=== PATIENT | female | born 1930 | race Caucasian/White ===

== ENCOUNTER 2016-11-11 04:10 | Inpatient (IN) | payer MEDICARE, BC ==
--- NOTE | ~2016-11-11 | HP ---
History And Physical [id number] [place]. [address] NAME: MANUEL SAMUELS : [birth year] STATUS : ADM Mahdu PAT#: [id number] AGE: 86 ADM/REG DATE : 11/11/16 MR#: [id number] REPORT SERV DATE: 11/11/16 DICTATED BY: FLORY LARRY DATE: 11/11/16 REPORT STATUS : Draft TRANSCRIBED BY: MODL DATE: 11/11/16 DATE OF ADMISSION: 11/11/2016 POINT OF ENTRY: [facility] Emergency Department. PRIMARY [employer] INSPECTOR: Parth Delgado M.D. CHIEF COMPLAINT: Shortness of breath and weakness. HISTORY OF PRESENT ILLNESS: Ms. Samuels is an 86-year-old female with a history of advanced chronic systolic congestive heart failure with ejection fraction of approximately 20%, status post AICD pacemaker insertion as well as atrial fibrillation, on anticoagulation, coronary artery disease, and ctvgwunj-tr-mdqaud mitral regurgitation, who presented to the Emergency Department at [facility] on Saturday evening with reports of shortness of breath, dyspnea on exertion, as well as weakness and fatigue. The patient is a very poor historian, and unfortunately it is very difficult to get a clear sense of what caused her to go into the [facility] Emergency Department on Saturday. It appears that she has recently been placed on Entresto, and she states that she ran out of the medication approximately three days ago, and the refill which she receives via the mail, had not arrived yet. She does state compliance with her Lasix 40 mg daily as well as fluid and sodium restriction. She states that when she woke up on Saturday morning, she did not "feel well," and throughout the day she got worse. When asked to provide details, she describes worsening weakness, shortness of breath, dyspnea on exertion, as well as what appears to be exercise intolerance. She denies any fevers, night sweats, chills, cough, sputum production, chest pain, palpitations, abdominal complaints such as abdominal pain, nausea, vomiting, diarrhea, or constipation. She states she has minimal edema in her legs, but it is very little compared to previous troubles with lower extremity edema. Initial evaluation at [facility] Emergency Department is noted for a chest x-ray that was concerning for volume overload. An INR was 3.99. A D-dimer was checked, it was elevated; therefore, a CT of the chest was done, which was negative for PE. She was given 80 mg of IV Lasix and then transferred to [facility] per patient request. COMPREHENSIVE REVIEW OF SYSTEMS: Otherwise negative, unless listed in history of present illness. PREVIOUS MEDICAL HISTORY: 1. Chronic systolic congestive heart failure, ejection fraction of 20%. 2. Coronary artery disease with prior myocardial infarction. 3. Status post AICD pacemaker insertion and generator and lead exchange. 4. Hypothyroidism. 5. Atrial fibrillation, on anticoagulation. 6. Yinonwcb-nf-zorloj mitral regurgitation. 7. History of breast cancer. 8. Hypertension. History And Physical [address] [address] NAME: MANUEL SAMUELS : [birth year] STATUS : ADM Madhu PAT#: [id number] AGE: 86 ADM/REG DATE : 11/11/16 MR#: [id number] REPORT SERV DATE: 11/11/16 DICTATED BY: FLORY LARRY DATE: 11/11/16 REPORT STATUS : Draft TRANSCRIBED BY: MORGAN DATE: 11/11/16 9. Obesity. 10.Chronic lower extremity wounds. SURGICAL HISTORY: 1. Cholecystectomy. 2. AICD pacemaker insertion. ALLERGIES: ARE TO SULFA DRUGS, TRAMADOL, AND CODEINE. HOME MEDICATIONS: Are pending at the time of dictation. SOCIAL HISTORY: Denies any tobacco, alcohol, or illicits. FAMILY MEDICAL HISTORY: Coronary artery disease. LABORATORIES AND IMAGING: All obtained from transfer records from [facility] Emergency Room. 1. Sodium is 137, potassium 3.9, chloride 99, carbon dioxide 23, BUN 23, creatinine 1.0, glucose is 158, calcium is 9.3, protein 6.3, albumin is 3.0, bilirubin is 2.7, ALT is 23, AST 46, alkaline phosphatase is 66. 2. INR is 3.99. 3. D-dimer is 2.84. 4. Troponin is 0.01. 5. Chest x-ray shows small bilateral pleural effusions as well as patchy bibasilar opacities, concerning for atelectasis versus edema versus consolidation. 6. CTA of the chest is negative for PE by a limited evaluation. 7. EKG obtained here per my review shows a Bi-V paced rhythm, which is unchanged compared to prior EKGs. PHYSICAL EXAMINATION: VITAL SIGNS: Temperature is 97.7 degrees Fahrenheit, pulse is 69, respirations 16, saturating 94% on 2 L via nasal cannula, blood pressure is 117/65. GENERAL: The patient is awake, alert, in no acute distress. Resting comfortably. She is a well-developed and well-nourished elderly female. HEENT: Atraumatic and normocephalic. Moist mucous membranes. Pupils are equal, round, reactive to light and accommodation. Extraocular eye movements are intact. No scleral icterus. NECK: Some mild jugular venous distention. No carotid bruits. CARDIAC: Regular rate and rhythm with a 2/6 systolic murmur, heard best over left lower sternal border. LUNGS: Is on oxygen, but is in no respiratory distress. Does have some mild inspiratory rales and crackles in the bilateral bases. ABDOMEN: Soft, nontender, and nondistended. Good bowel sounds. No rebound, guarding, or rigidity. EXTREMITIES: Are warm and perfused with no cyanosis or clubbing. Does have some chronic venous stasis changes as well as trace pedal edema. SKIN: Warm and dry. History And Physical [address] [address] NAME: MANUEL SAMUELS : [birth year] STATUS : ADM Madhu PAT#: [id number] AGE: 86 ADM/REG DATE : 11/11/16 MR#: [id number] REPORT SERV DATE: 11/11/16 DICTATED BY: FLORY LARRY DATE: 11/11/16 REPORT STATUS : Draft TRANSCRIBED BY: MODGrecia DATE: 11/11/16 PSYCHIATRIC: Affect is anxious. NEUROLOGIC: Alert and oriented x3. Cranial nerves II through XII grossly intact. Speech is normal. Gait is not assessed. ASSESSMENT AND PLAN: Ms. Samuels is an 86-year-old female with a history of advanced chronic systolic congestive heart failure, who presents with weakness, shortness of breath, and found to have an acute on chronic systolic congestive heart failure exacerbation. PROBLEM LIST: 1. Acute on chronic systolic congestive heart failure exacerbation. 2. Hypoxemia. 3. Supratherapeutic INR. 4. Elevated D-dimer level with negative CT of the chest. 5. Elevated bilirubin level. 6. Weakness and fatigue. PLAN: 1. Acute on chronic systolic congestive heart failure. She has received 80 of IV Lasix at the outside emergency department. We will continue initial IV. Did Lasix diuresis with 40 mg IV q.8 hours for two additional doses. The patient is a very poor historian, but I think she was placed on Entresto, and she reports that she has run out of it three days ago. We will need to have Pharmacy confirm her home medications, and we will restart them as indicated. Given her advanced heart failure, we will ask Dr. Delgado, her primary database operator, to assist us with managing the patient's condition. Place the patient on fluid and sodium restriction. Follow up repeat chest x-ray here upon admission as well as a BNP level. We will hold off on further echocardiogram as she just had an echocardiogram approximately one month ago. 2. Hypoxemia. She is on 2 L via nasal cannula. She is not normally on any oxygen at home. We will attempt to wean as tolerated with diuresis. 3. Supratherapeutic INR. We will hold the patient's Coumadin, and ask Pharmacy to assist us with managing. 4. Elevated D-dimer level. The patient's CTA of the chest was negative for PE, although limited evaluation; although, she is already on anticoagulation for her history of atrial fibrillation. 5. Elevated bilirubin level. Possibly due to congestive hepatopathy. We will need to continue to monitor. 6. Weakness and fatigue. I think likely secondary to advanced heart failure and exacerbation, but we will continue to monitor. She does have hypothyroidism; therefore, we will check some thyroid function studies as well, as well as a urinalysis. 7. Deep venous thrombosis prophylaxis. Therapeutic INR. CODE STATUS: The patient wishes to be DO NOT RESUSCITATE; this was confirmed with the patient. History And Physical [address] [place]. [address] NAME: MANUEL SAMUELS : [birth year] STATUS : ADM Madhu PAT#: [id number] AGE: 86 ADM/REG DATE : 11/11/16 MR#: [id number] REPORT SERV DATE: 11/11/16 DICTATED BY: FLORY LARRY DATE: 11/11/16 REPORT STATUS : Draft TRANSCRIBED BY: MORGAN DATE: 11/11/16 JAY/MORGAN Flory Larry MD / [id number] CC: Beni Faria Jr, MD Ronald Jarl, M.D. David Wendt, M.D.
--- NOTE | ~2016-11-11 | DS ---
Discharge Summary [facility] [address] [facility] [place]. [address] NAME: MANUEL SAMUELS : [birth year] STATUS : DIS IN PAT#: [id number] AGE: 86 ADM/REG DATE : 11/11/16 MR#: [id number] REPORT SERV DATE: 11/16/16 DICTATED BY: JR. FARIA WILLIAM JOHN DATE: 11/15/16 REPORT STATUS : Draft TRANSCRIBED BY: MODGrecia DATE: 11/15/16 ADMISSION DATE: 11/11/2016 DISCHARGE DATE: 11/15/2016 DISCHARGE DIAGNOSES: 1. Acute on chronic systolic heart failure with ejection fraction of 20% status post AICD. 2. Acute on chronic hypoxic respiratory failure, now resolved. 3. Iatrogenic coagulopathy. 4. Weakness. 5. Status post fall. 6. Acute kidney injury. OPERATIONS, PROCEDURES, AND TREATMENTS: Include: 1. PA and lateral chest x-ray done 11/11/2016, which showed small bilateral pleural effusions with cardiomegaly, which was mildly improved from the prior study. 2. PA and lateral chest x-ray done 11/12/2016, which showed costophrenic pleural fluid, bibasilar atelectasis, cardiomegaly, and pacemaker in place. DISCHARGE MEDICATIONS: Include: 1. Potassium chloride 10 mEq orally daily. 2. Entresto one tablet orally twice a day. I wrote a script for 2 week supply with a 90 day supply already in the mail from her insurance carrier. 3. Coumadin 3 mg orally daily. 4. Vitamin B12 of 1000 mcg orally daily. 5. Calcium plus D 600 one tablet orally daily. 6. Cholecalciferol 2000 units daily. 7. Lasix 40 mg every morning. 8. Synthroid 125 mcg daily. 9. Metoprolol 25 mg orally daily. CONSULTING PHYSICIAN: Dr. Delgado of Cardiology. HOSPITAL COURSE: The patient is an 86-year-old female with a history of advanced chronic systolic heart failure, on Entresto at home, who presented to the emergency room on 11/11/2015 with complaint of shortness of breath. The patient apparently ran out of Entresto, went to [facility] several days prior, was discharged, went home, continued to not feel well, had dyspnea on exertion. The emergency room workup was significant for a temperature of 97.7, heart rate 69, respiratory rate 16, saturating 94% on 2 L oxygen with a blood pressure 117/66. She had mild jugular venous distention with 2/6 holosystolic murmur heard left over the left lower sternal border. She had mild inspiratory rales and crackles in the bilateral bases with trace pedal edema. BUN and creatinine were 23 and 1. The patient was admitted to the Clinical Decision Unit. She was placed on diuresis with IV Lasix with a fairly brisk diuresis. She was slow to wean off oxygen. She was seen in consultation by Cardiology who agreed with diuresis. The patient slowly improved. Her Discharge Summary [facility] [address] [place]. [address] NAME: MANUEL SAMUELS : [birth year] STATUS : DIS IN PAT#: [id number] AGE: 86 ADM/REG DATE : 11/11/16 MR#: [id number] REPORT SERV DATE: 11/16/16 DICTATED BY: JR. FARIA WILLIAM JOHN DATE: 11/15/16 REPORT STATUS : Draft TRANSCRIBED BY: MORGAN DATE: 11/15/16 renal function actually improved with diuresis. At discharge, her BUN is 27 and creatinine 1. She is euvolemic clinically. The patient is somewhat frightened of going home, however, desperately wants to maintain her independence. We have arranged for home health. We have also spoken with her insurance carrier regarding the Entresto which is to be mailed. We have made arrangements for a two week supply of Entresto with a guarantee from the insurance company that her mailed prescription of Entresto will arrive prior to running out. Regarding the hypoxic respiratory failure, this had resolved by discharge, and the patient was on room air. Regarding iatrogenic coagulopathy, this resolved with withholding Coumadin. At discharge, her INR is 2.4, she will resume 3 mg of Coumadin per day. With regard to weakness and falls, patient worked with physical therapy. The patient will be discharged home today 11/16/2016. She will be seen by home health through [facility]. The patient will follow up with her primary care physician with a BMP and INR in one week, that would be Dr. Gomez Alvarez. She will also follow up with Cardiology, Dr. Delgado. The patient was also instructed to weigh herself daily and call Dr. Delgado's office if she gains over 3 pounds. DISCHARGE DIET: 2 g sodium, 1.2 L fluid restriction. ACTIVITY: As tolerated. FOLLOWUP: As above. This discharge took 40 minutes for patient encounter, coordination of care, and documentation. For discharge exam and laboratory, please see daily progress note. WJF/MODL Beni Faria Jr, MD / [id number] CC: Beni Faria Jr, MD Keith Weaver, MD
--- NOTE | ~2016-11-11 | CN ---
Consultation Report [facility] [address] [facility] [place]. [address] NAME: MANUEL SAMUELS : [birth year] STATUS : ADM IN PAT#: [id number] AGE: 86 ADM/REG DATE : 11/11/16 MR#: [id number] REPORT SERV DATE: 11/13/16 DICTATED BY: BENI ONEIL DATE: 11/13/16 REPORT STATUS : Draft TRANSCRIBED BY: MORGAN DATE: 11/13/16 CARDIOLOGY CONSULTATION. DATE OF CONSULTATION: [facility] PHYSICIAN: Parth Delgado M.D. REASON FOR CONSULTATION: Heart failure. HISTORY OF PRESENT ILLNESS: Ms. Samuels is an 86-year-old woman, well known to Dr. Delgado with a history of nonischemic cardiomyopathy status post defibrillator placement and recent generator change. Overall, she was doing well from a cardiac standpoint but ran out of her Entresto due to some communication issues with the insurance carrier. She had some increasing weakness which was her main complaint as well as dyspnea. Due to these ongoing progressive symptoms, she called the ambulance and was brought to the hospital with signs and symptoms of congestive heart failure. She denied chest pain or tightness. Had no palpitations or syncope, and no defibrillator firing. She reports compliant with her diuretics and somewhat with her fluid intake. REVIEW OF SYSTEMS: As per the history of present illness, ten other systems are negative. No fevers or chills. No nausea or vomiting. No PND but mild orthopnea. PAST MEDICAL HISTORY: 1. Chronic atrial fibrillation. 2. Nonischemic cardiomyopathy, status post biventricular ICD. 3. Chronic Coumadin therapy. 4. Chronic systolic congestive heart failure. FAMILY HISTORY: Noncontributory. SOCIAL HISTORY: The patient is . Lives alone. Continues to be active and drives by her report. ALLERGIES: SULFA, CODEINE, AND ADHESIVE. HOME MEDICATIONS: Lasix 40 mg p.o. daily, Synthroid 125 mcg daily, Toprol-XL 50 daily, potassium 10 daily, Entresto daily, spironolactone 25 daily, warfarin as directed. PHYSICAL EXAMINATION: VITAL SIGNS: Heart rates 69, blood pressure 105/60. GENERAL: The patient is a pleasant elderly white female in no apparent distress. HEENT: Conjunctivae are anicteric, no xanthelasma, lips without cyanosis. NECK: Supple. Jugular venous pressure is mildly elevated. Consultation Report [id number] [place]. [address] NAME: MANUEL SAMUELS : [birth year] STATUS : ADM IN PAT#: [id number] AGE: 86 ADM/REG DATE : 11/11/16 MR#: [id number] REPORT SERV DATE: 11/13/16 DICTATED BY: BENI ONEIL DATE: 11/13/16 REPORT STATUS : Draft TRANSCRIBED BY: MODL DATE: 11/13/16 LUNGS: Clear to auscultation bilaterally, no wheezes, rales or rhonchi. CARDIOVASCULAR: Irregularly irregular. Normal S1, S2. 2/6 holosystolic murmur. ABDOMEN: Soft, nontender, nondistended. EXTREMITIES: Mild lower extremity edema. NEURO/PSYCH: Alert and oriented to person, place and time. No obvious neurologic deficits. Mood and affect normal. DATA: BNP is down to 1773 from 5000. Creatinine 1.07. Troponin negative. IMPRESSION: 1. Acute on chronic systolic congestive heart failure. 2. Nonischemic cardiomyopathy, status post biventricular ICD. 3. Chronic atrial fibrillation. 4. Chronic anticoagulation. RECOMMENDATIONS: Ms. Samuels presents with congestive failure which could be due to running out of her Entresto. I will get her started back on that drug and continue gentle diuresis and watch her creatinine. I will also fluid restrict her. WO/MODL Beni Oneil M.D., Ph.D, F.A.C.C. / [id number] CC: Beni Faria Jr, MD Ronald Jarl, M.D.
[~2016-11-11 04:10] MED LIST: AVAPRO75 PO; B12100T PO; C5 PO; CALTRA600D PO; CEFT5 PO; CO Q-10100 MG PO; COZ50 PO; CYANO1000T PO; DCN100 PO; DIGITEK0.125 MG PO; JANTOVEN3 MG PO; KLOR-CON 1010 MEQ PO; L20 PO; L40 PO; SACU1TAB PO; SPIRO25 PO; SYN1 PO; SYN125 PO; TOPXL50 PO; VITAMIN D31000 UNIT PO
[2016-11-11 06:21] LABS: BASOPHILS 0 %; EOSINOPHILS 0 %; HEMATOCRIT 34.9 % (36.0-48.0); HEMOGLOBIN 11.9 g/dL (12.0-16.0); LYMPHOCYTES 20.9 %; LYMPHOCYTES ABSOLUTE 0.87 10/3/uL (0.67-4.30); MEAN CORPUS HGB CONC 34.1 g/dL (32.0-36.0); MEAN CORPUSCULAR HEMOGLOB 30.7 pg (26.0-34.0); MEAN CORPUSCULAR VOLUME 90.2 fL (80-100); MEAN PLATELET VOLUME 9.5 fL (9.2-13.0); MONOCYTES 4.1 %; MONOCYTES ABSOLUTE 0.17 10/3/uL (0.21-1.20); NEUTROPHILS ABSOLUTE 3.13 10/3/uL (2.02-8.40); PLATELET COUNT 135 10/3/uL (150-400); RBC DISTRIBUTION WIDTH 14.2 % (12.0-16.0); RED CELL COUNT 3.87 10/6/uL (4.0-5.6); WHITE BLOOD CELLS 4.2 10/3/uL (4.5-10.5)
[2016-11-11 06:24] LABS: MANUAL DIFF NO %
[2016-11-11 07:33] LABS: CALCIUM, SERUM 9.1 MG/DL (8.5-10.4); CHLORIDE, SERUM 102 MMOL/L (96-112); CO2 (CARBON DIOXIDE) 24 MMOL/L (24-34); CREATININE 1.19 MG/DL (0.55-1.02); FREE T4 1.79 NG/DL (0.76-1.46); GFR AFRICAN AMERICAN 47 ML/MIN (>=60); GFR NON AFRICAN AMERICAN 41 ML/MIN (>=60); POTASSIUM, SERUM 3.5 MMOL/L (3.5-5.3); SODIUM, SERUM 139 MMOL/L (135-148)
[2016-11-11 07:34] LABS: BUN (BLOOD UREA NITROGEN) 26 MG/DL (6-23); CPK 80 U/L (0-200); GLUCOSE, SERUM 163 MG/DL (60-99); ULTRASENSITIVE TSH 0.506 MCIU/ML (0.358-3.740)
[2016-11-11 08:18] LABS: CK-MB 2.8 NG/ML; TROPONIN I 0.03 NG/ML (<0.05)
[2016-11-11 12:13] LABS: INTERNATIONAL NORMAL RATI 3.6 UNITS (-)
[2016-11-11 12:15] LABS: PROTIME (NOT ORD) 35.5 SEC (12.0-14.5)
[2016-11-11 12:22] LABS: CPK 73 U/L (0-200); TROPONIN I 0.04 NG/ML (<0.05)
[2016-11-11 12:23] LABS: CK-MB 2.7 NG/ML
[2016-11-11] MEDS ORDERED: JANTOVEN3 MG PO (14:50)
[2016-11-11] MEDS ORDERED: SPIRO25 PO (14:50)
[2016-11-11] MEDS ORDERED: KLOR-CON M1010 MEQ PO (14:52)
[2016-11-11] MEDS ORDERED: SACU1TAB PO (14:52)
[2016-11-11] MEDS ORDERED: TOPXL25 PO (14:53)
[2016-11-11] MEDS ORDERED: L40 PO (14:53)
[2016-11-11] MEDS ORDERED: LEVOTHYROXIN125 MCG PO (14:53)
[2016-11-11] MEDS ORDERED: VITAMIN D31000 UNIT PO (14:54)
[2016-11-11] MEDS ORDERED: CYANO1000T PO (14:54)
[2016-11-11] MEDS ORDERED: CALTRA600D PO (14:54)
[2016-11-12 04:45] LABS: BASOPHILS 0.1 %; BASOPHILS ABSOLUTE 0.01 10/3/uL (0.0-0.16); EOSINOPHILS ABSOLUTE 0.08 10/3/uL (0.0-0.53); HEMATOCRIT 33.9 % (36.0-48.0); HEMOGLOBIN 11.3 g/dL (12.0-16.0); IMMATURE GRANULOCYTES 0.1 %; IMMATURE GRANULOCYTES ABSOLUTE 0.01 10/3/uL (0.0-0.11); LYMPHOCYTES 17.8 %; LYMPHOCYTES ABSOLUTE 1.47 10/3/uL (0.67-4.30); MEAN CORPUS HGB CONC 33.3 g/dL (32.0-36.0); MEAN CORPUSCULAR HEMOGLOB 30.6 pg (26.0-34.0); MEAN CORPUSCULAR VOLUME 91.9 fL (80-100); MEAN PLATELET VOLUME 9.3 fL (9.2-13.0); MONOCYTES 7.9 %; MONOCYTES ABSOLUTE 0.65 10/3/uL (0.21-1.20); NEUTROPHILS 73.1 %; NEUTROPHILS ABSOLUTE 6.06 10/3/uL (2.02-8.40); PLATELET COUNT 160 10/3/uL (150-400); RBC DISTRIBUTION WIDTH 14.3 % (12.0-16.0); RED CELL COUNT 3.69 10/6/uL (4.0-5.6)
[2016-11-12 04:49] LABS: MANUAL DIFF NO %; WHITE BLOOD CELLS 8.3 10/3/uL (4.5-10.5)
[2016-11-12 04:53] LABS: BUN (BLOOD UREA NITROGEN) 30 MG/DL (6-23); CALCIUM, SERUM 9.1 MG/DL (8.5-10.4); CHLORIDE, SERUM 103 MMOL/L (96-112); CO2 (CARBON DIOXIDE) 30 MMOL/L (24-34); CREATININE 1.08 MG/DL (0.55-1.02); GFR AFRICAN AMERICAN 53 ML/MIN (>=60); GFR NON AFRICAN AMERICAN 46 ML/MIN (>=60); GLUCOSE, SERUM 108 MG/DL (60-99); POTASSIUM, SERUM 3.5 MMOL/L (3.5-5.3); SODIUM, SERUM 143 MMOL/L (135-148)
[2016-11-12 05:01] LABS: INTERNATIONAL NORMAL RATI 3.8 UNITS (-); PROTIME (NOT ORD) 36.8 SEC (12.0-14.5)
[2016-11-13 05:08] LABS: INTERNATIONAL NORMAL RATI 3.3 UNITS (-); PROTIME (NOT ORD) 33.6 SEC (12.0-14.5)
[2016-11-13 05:23] LABS: BUN (BLOOD UREA NITROGEN) 29 MG/DL (6-23); CALCIUM, SERUM 8.8 MG/DL (8.5-10.4); CHLORIDE, SERUM 102 MMOL/L (96-112); CO2 (CARBON DIOXIDE) 31 MMOL/L (24-34); CREATININE 1.07 MG/DL (0.55-1.02); GFR AFRICAN AMERICAN 54 ML/MIN (>=60); GFR NON AFRICAN AMERICAN 46 ML/MIN (>=60); GLUCOSE, SERUM 97 MG/DL (60-99); POTASSIUM, SERUM 3.8 MMOL/L (3.5-5.3); SODIUM, SERUM 141 MMOL/L (135-148)
[2016-11-14 05:05] LABS: INTERNATIONAL NORMAL RATI 2.8 UNITS (-); PROTIME (NOT ORD) 28.9 SEC (12.0-14.5)
[2016-11-14 05:14] LABS: BUN (BLOOD UREA NITROGEN) 26 MG/DL (6-23); CALCIUM, SERUM 8.6 MG/DL (8.5-10.4); CHLORIDE, SERUM 104 MMOL/L (96-112); CO2 (CARBON DIOXIDE) 30 MMOL/L (24-34); CREATININE 0.97 MG/DL (0.55-1.02); GFR AFRICAN AMERICAN 60 ML/MIN (>=60); GFR NON AFRICAN AMERICAN 52 ML/MIN (>=60); POTASSIUM, SERUM 4.1 MMOL/L (3.5-5.3); SODIUM, SERUM 141 MMOL/L (135-148)
[2016-11-14 05:18] LABS: GLUCOSE, SERUM 96 MG/DL (60-99)
[2016-11-15 04:52] LABS: BUN (BLOOD UREA NITROGEN) 27 MG/DL (6-23); CALCIUM, SERUM 8.9 MG/DL (8.5-10.4); CHLORIDE, SERUM 103 MMOL/L (96-112); CO2 (CARBON DIOXIDE) 31 MMOL/L (24-34); CREATININE 1.02 MG/DL (0.55-1.02); GFR AFRICAN AMERICAN 57 ML/MIN (>=60); GFR NON AFRICAN AMERICAN 49 ML/MIN (>=60); POTASSIUM, SERUM 3.9 MMOL/L (3.5-5.3); SODIUM, SERUM 141 MMOL/L (135-148)
[2016-11-15 04:53] LABS: INTERNATIONAL NORMAL RATI 2.4 UNITS (-)
[2016-11-15 05:00] LABS: GLUCOSE, SERUM 98 MG/DL (60-99)
== END 2016-11-15 16:18 | disposition home health service (06) | DRG 291 ==
LOC: CDU1 04:10
PROVIDERS: Internal Medicine; Nurse Practitioner Acute Care
DX: I11.0 Hypertensive heart disease with heart failure (principal); J96.21 Acute and chronic respiratory failure with hypoxia; N17.9 Acute kidney failure, unspecified; I50.23 Acute on chronic systolic (congestive) heart failure; R79.1 Abnormal coagulation profile; I42.9 Cardiomyopathy, unspecified; I48.2 Chronic atrial fibrillation; I25.2 Old myocardial infarction; W19.XXXA Unspecified fall, initial encounter; T45.515A Adverse effect of anticoagulants, initial encounter; I25.10 Atherosclerotic heart disease of native coronary artery without angina pectoris; E03.9 Hypothyroidism, unspecified; I34.0 Nonrheumatic mitral (valve) insufficiency; Z88.2 Allergy status to sulfonamides; Z95.810 Presence of automatic (implantable) cardiac defibrillator; Z85.3 Personal history of malignant neoplasm of breast
CPT/HCPCS: 71020; 80048; 82550; 82553; 83880; 84439; 84443; 84484; 85025; 85610; 93005; 97116-GP; 97161-GP; A9270-GY; G8978-CK-GP; G8979-CI-GP